=== PATIENT | male | born 1945 | race African-American/Black ===

== ENCOUNTER 2018-03-25 18:19 | Emergency (ER) | payer MEDICARE, MEDICAID, OTHER ==
[~2018-03-25] VITALS: Ht 182.9 cm; Wt 113.4 kg
[2018-03-25] MEDS ORDERED: Acetaminophen 500mg (ES) tab ORAL ONE (18:30)
[2018-03-25] MEDS ORDERED: Methocarbamol 500mg tab ORAL ONE (18:30)
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
[2018-03-25] MEDS ORDERED: TYLENOL EXTRA500 MG ORAL (19:23)
--- NOTE | 2018-03-26 11:03 | Diagnostic Imaging Report ---
Indication: Pain status post injury Technique: XRAY Foot Complete R Comparison: None Findings: No acute fractures identified. There is abnormality of the fourth digit with irregularity of the base of the fourth proximal phalanx. This may be related to chronic fracture or possibly congenital as a demonstrable fourth middle phalanx is not definitively seen. The fourth digit is foreshortened. Lisfranc alignment of the foot is preserved. No radiopaque foreign body identified. Impression: Chronic appearing abnormality of the fourth digit as above. No evidence of acute fracture or dislocation.
== END 2018-03-25 20:23 | disposition home or self-care (01) ==
LOC: EDBD 18:19 → EMR 19:50 → MERGE 19:50 → EMR 20:23
DX: S99.921A Unspecified injury of right foot, initial encounter (principal); W23.0XXA Caught, crushed, jammed, or pinched between moving objects, initial encounter; Y92.410 Unspecified street and highway as the place of occurrence of the external cause
CPT/HCPCS: 99283

== ENCOUNTER 2019-11-19 22:51 | Inpatient (IN) | payer MEDICARE, MEDICAID, OTHER ==
[~2019-11-19] VITALS: Ht 185.4 cm; Wt 129.3 kg
[~2019-11-19 22:51] MED LIST: TYLENOL EXTRA500 MG ORAL
[2019-11-19 23:02] VITALS: BP 133/72
[2019-11-19] MEDS ORDERED: NORCO 10-325 T1 EACH ORAL (23:15)
[2019-11-19] MEDS ORDERED: GABAPENTIN600 MG ORAL (23:15)
[2019-11-19] MEDS ORDERED: METFORMIN HCL500 M1 ORAL (23:15)
[2019-11-19] MEDS ORDERED: Neosporin Oint Ud Pkt TOP ONE (23:45)
[2019-11-19] MEDS ORDERED: Morphine Sulfate 4mg/ml Inj (IV USE ONLY) IVP ONE (23:45)
[2019-11-19] MEDS ORDERED: Tetanus/Diptheria/Pertussis IM ONE (23:45)
[2019-11-20] VITALS (7 sets, daily range): BP systolic 118–142; BP diastolic 62–83
[2019-11-20 00:01] LABS: BASOPHILS % (AUTO) 1.1 % (0.0-2.0); EOSINOPHILS % (AUTO) 3.4 % (0.0-3.0); HEMATOCRIT 48.3 % (42.0-52.0); HEMOGLOBIN 15.1 G/DL (14.2-18.0); LYMPHOCYTES % (AUTO) 26.5 % (20.0-45.0); MEAN CORPUSCULAR VOLUME 104 FL (80-99); MONOCYTES % (AUTO) 5.1 % (1.0-10.0); NEUTROPHILS % (AUTO) 63.9 % (45.0-75.0); PLATELET COUNT 187 K/UL (150-450); RED BLOOD COUNT 4.63 M/UL (4.70-6.10); RED CELL DISTRIBUTION WIDTH 13.4 % (11.6-14.8); WHITE BLOOD COUNT 9.8 K/UL (4.8-10.8)
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
[2019-11-20 00:07] LABS: INR 0.9 (0.9-1.1)
[2019-11-20] MEDS ORDERED: Vancomycin 1.5gm/NS Premix 275 ML IVPB ONE (00:15)
[2019-11-20] MEDS ORDERED: Piperacillin/Tazobactam 3.375 GM in NS 110 ML IVPB ONE (00:15)
[2019-11-20 00:29] LABS: ANION GAP 5 mmol/L (5-15); BLOOD UREA NITROGEN 22 mg/dL (7-18); CALCIUM 9.2 MG/DL (8.5-10.1); CARBON DIOXIDE 30 MMOL/L (21-32); CHLORIDE 101 MMOL/L (98-107); CREATININE 1.3 MG/DL (0.55-1.30); POTASSIUM 4.3 MMOL/L (3.5-5.1); SODIUM 136 MMOL/L (136-145)
[2019-11-20 00:35] LABS: ALANINE AMINOTRANSFERASE 22 U/L (12-78); ALBUMIN 3.3 G/DL (3.4-5.0); ALBUMIN/GLOBULIN RATIO 0.7 (1.0-2.7); ALKALINE PHOSPHATASE 24 U/L (46-116); ASPARTATE AMINO TRANSFERASE 19 U/L (15-37); BILIRUBIN,TOTAL 0.3 MG/DL (0.2-1.0)
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
--- NOTE | 2019-11-20 01:01 | Diagnostic Imaging Report ---
EXAM: XR Left Tibia and Fibula, 2 Views CLINICAL HISTORY: 2 day hx of left lower limb pain, had draining abscess. Was ann bearing, but now unable to walk due to pain. HX: diabetes and neuropathy TECHNIQUE: Frontal and lateral views of the left tibia and fibula. COMPARISON: No relevant prior studies available. FINDINGS: Bones/joints: Unremarkable. No acute fracture. No dislocation. Soft tissues: Unremarkable. No radiopaque foreign body. IMPRESSION: Normal left tibia and fibula x-rays.
[2019-11-20 01:36] LABS: APPEARANCE,URINE CLEAR; COLOR,URINE YELLOW
[2019-11-20 01:37] LABS: BILIRUBIN, URINE NEGATIVE (NEGATIVE); GLUCOSE, URINE (UA) NEGATIVE (NEGATIVE); KETONES,URINE NEGATIVE (NEGATIVE); LEUKOCYTE ESTERASE ,URINE 2+ (NEGATIVE); NITRITE,URINE NEGATIVE (NEGATIVE); PH,URINE 5 (4.5-8.0); PROTEIN,URINE 2+ (NEGATIVE); UROBILINOGEN,URINE NORMAL MG/DL (0.0-1.0)
[2019-11-20] MEDS ORDERED: Morphine Sulfate 4mg/ml Inj (IV USE ONLY) IVP ONE (02:30)
--- NOTE | 2019-11-20 03:12 | Diagnostic Imaging Report ---
EXAM: US Duplex Left Lower Extremity Veins CLINICAL HISTORY: Left leg pain TECHNIQUE: Real-time duplex ultrasound scan of the left lower extremity veins integrating B-mode two-dimensional vascular structure, Doppler spectral analysis, color flow Doppler imaging and compression. COMPARISON: No relevant prior studies available. FINDINGS: Deep veins: Unremarkable. No DVT in the visualized common femoral, femoral, proximal deep femoral or popliteal veins. The veins demonstrate normal color flow, are normally compressible, with normal phasic flow and/or augmentation response. Superficial veins: Unremarkable. No thrombus in the visualized great saphenous vein. Soft tissues: No acute findings. No popliteal cyst. IMPRESSION: Normal left lower extremity duplex venous ultrasound.
[2019-11-20] MEDS: NovoLOG Insulin Flexpen SUBQ SCH ×4 (06:03→21:00)
[2019-11-20] MEDS ORDERED: metFORMIN 500mg tab ORAL SCH (06:30)
[2019-11-20] MEDS: Aspirin Baby 81mg ORAL SCH (08:50)
[2019-11-20] MEDS: metFORMIN 500mg tab ORAL SCH (08:50)
[2019-11-20] MEDS: HYDROcodone/Acetamin 10/325 tab ORAL PRN (10:07)
[2019-11-20] MEDS: Vancomycin 1gm/D5W 275ml IVPB SCH ×2 (12:51)
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
--- NOTE | 2019-11-20 14:45 | Consultation ---
History of Present Illness General Date patient seen: Nov 20, 2019 Chief Complaint: Pain Referring physician: Oli Ng MD Reason for Consultation: Left leg cellulitis Present Illness HPI Pt relates long standing blisters to left leg, but describes recent popping of blister 2 days ago. Pt describes improvement with current iv antibiotic tx and hospitalization. Pt denies f/c/n/v. Pt describes pain with direct pressure. Pt denies hx of prior blisters or wounds. Allergies: Coded Allergies: No Known Allergies (Unverified , 03/26/18) Medication History Scheduled Gabapentin* (Gabapentin*), 600 MG ORAL THREE TIMES A DAY, (Reported) Metformin Hcl* (Metformin Hcl*), 500 MG ORAL TWICE A DAY, (Reported) Scheduled PRN Acetaminophen* (Tylenol Extra Strength*), 500 MG ORAL Q8H PRN for Prn Headache/ Temp > 101 Hydrocodone Bit/Acetaminophen 10-325* ([place]enedict 10-325*), 1 TAB ORAL Q6H PRN for For Pain, (Reported) Patient History History Provided By: Patient Healthcare decision maker Resuscitation status Advanced Directive on File Physical Exam General Appearance: lethargic, overweight Last 24 Hour Vital Signs Date Time Temp Pulse Resp B/P (MAP) Pulse Ox O2 Delivery O2 Flow Rate FiO2 11/20/19 12:00 98.7 104 18 123/79 (94) 93 11/20/19 09:00 Nasal Cannula 1.0 11/20/19 08:00 99.1 103 20 118/62 (80) 97 11/20/19 05:59 Room Air 11/20/19 04:00 97.9 62 20 138/74 (95) 95 11/20/19 04:00 98.4 72 21 135/72 93 Room Air 11/20/19 03:45 98.4 79 21 142/70 93 Room Air 11/20/19 03:18 98.4 11/20/19 00:45 98.4 79 21 140/73 90 Room Air 11/20/19 00:25 98.4 11/19/19 23:02 98.4 75 21 133/72 90 Room Air 11/19/19 22:57 98.4 78 21 133/72 (92) 90 Room Air Intake and Output 11/19/19 11/20/19 19:00 07:00 Intake Total 500 ml Balance 500 ml Intake Oral 500 ml # Voids 2 Laboratory Tests Test 11/19/19 23:20 11/20/19 01:22 White Blood Count 9.8 K/UL (4.8-10.8) Red Blood Count 4.63 M/UL (4.70-6.10) L Hemoglobin 15.1 G/DL (14.2-18.0) Hematocrit 48.3 % (42.0-52.0) Mean Corpuscular Volume 104 FL (80-99) H Mean Corpuscular Hemoglobin 32.5 PG (27.0-31.0) H Mean Corpuscular Hemoglobin Concent 31.2 G/DL (32.0-36.0) L Red Cell Distribution Width 13.4 % (11.6-14.8) Platelet Count 187 K/UL (150-450) Mean Platelet Volume 6.5 FL (6.5-10.1) Neutrophils (%) (Auto) 63.9 % (45.0-75.0) Lymphocytes (%) (Auto) 26.5 % (20.0-45.0) Monocytes (%) (Auto) 5.1 % (1.0-10.0) Eosinophils (%) (Auto) 3.4 % (0.0-3.0) H Basophils (%) (Auto) 1.1 % (0.0-2.0) Erythrocyte Sedimentation Rate 32 MM/HR (0-20) H Prothrombin Time 10.2 SEC (9.30-11.50) Prothromb Time International Ratio 0.9 (0.9-1.1) Activated Partial Thromboplast Time 27 SEC (23-33) Sodium Level 136 MMOL/L (136-145) Potassium Level 4.3 MMOL/L (3.5-5.1) Chloride Level 101 MMOL/L (98-107) Carbon Dioxide Level 30 MMOL/L (21-32) Anion Gap 5 mmol/L (5-15) Blood Urea Nitrogen 22 mg/dL (7-18) H Creatinine 1.3 MG/DL (0.55-1.30) Estimat Glomerular Filtration Rate > 60 mL/min (>60) Glucose Level 101 MG/DL (74-106) Lactic Acid Level 1.20 mmol/L (0.4-2.0) Calcium Level 9.2 MG/DL (8.5-10.1) Magnesium Level 1.9 MG/DL (1.8-2.4) Total Bilirubin 0.3 MG/DL (0.2-1.0) Aspartate Amino Transf (AST/SGOT) 19 U/L (15-37) Alanine Aminotransferase (ALT/SGPT) 22 U/L (12-78) Alkaline Phosphatase 24 U/L (46-116) L C-Reactive Protein, Quantitative 0.9 mg/dL (0.00-0.90) Pro-B-Type Natriuretic Peptide 53 pg/mL (0-125) Total Protein 7.8 G/DL (6.4-8.2) Albumin 3.3 G/DL (3.4-5.0) L Globulin 4.5 g/dL Albumin/Globulin Ratio 0.7 (1.0-2.7) L Urine Color Yellow Urine Appearance Clear Urine pH 5 (4.5-8.0) Urine Specific [place] 1.010 (1.005-1.035) Urine Protein 2+ (NEGATIVE) H Urine Glucose (UA) Negative (NEGATIVE) Urine Ketones Negative (NEGATIVE) Urine Blood 2+ (NEGATIVE) H Urine Nitrite Negative (NEGATIVE) Urine Bilirubin Negative (NEGATIVE) Urine Urobilinogen Normal MG/DL (0.0-1.0) Urine Leukocyte Esterase 2+ (NEGATIVE) H Urine RBC 2-4 /HPF (0 - 0) H Urine WBC 20-30 /HPF (0 - 0) H Urine Squamous Epithelial Cells Occasional /LPF Urine Bacteria Occasional /HPF (NONE) Microbiology Date/Time Source Procedure Growth Status 11/19/19 23:20 Nasopharynx SARS-CoV-2 RdRp Gene Assay - Final Complete 11/19/19 23:20 Leg Left Gram Stain - Final Resulted 11/19/19 23:20 Leg Left Wound Culture Pending Resulted Height (Feet): 6 Height (Inches): 1.00 Weight (Pounds): 285 Medications Current Medications Medications (Trade) Dose Ordered Sig/Siomara Route PRN Reason Start Time Stop Time Status Last Admin Dose Admin Acetaminophen/ Hydrocodone Bitart ([place] 10/325) 1 tab Q6H PRN ORAL For Pain 11/20/19 07:15 11/27/19 07:14 11/20/19 10:07 Aspirin (ASA) 81 mg DAILY ORAL 11/20/19 09:00 01/04/20 08:59 11/20/19 08:50 Dextrose (Dextrose 50%) 25 ml Q30M PRN IV Hypoglycemia 11/20/19 05:00 02/18/20 04:59 Dextrose (Dextrose 50%) 50 ml Q30M PRN IV Hypoglycemia 11/20/19 05:00 02/18/20 04:59 Folic Acid (Folate) 1 mg DAILY ORAL 11/20/19 09:00 12/20/19 08:59 11/20/19 08:50 Gabapentin (Neurontin) 600 mg THREE TIMES A DAY ORAL 11/20/19 09:00 12/20/19 08:59 11/20/19 12:51 Insulin Aspart (NovoLOG) BEFORE MEALS AND HS SUBQ 11/20/19 06:30 02/18/20 06:29 11/20/19 12:09 Insulin Detemir (Levemir) 15 units BEDTIME SUBQ 11/20/19 21:00 02/18/20 20:59 Levofloxacin 100 ml @ 100 mls/hr Q24H IVPB 11/20/19 14:00 11/27/19 13:59 11/20/19 14:28 Metformin HCl (Glucophage) 500 mg DAILY ORAL 11/20/19 09:00 12/20/19 08:59 11/20/19 08:50 Potassium Chloride (K-Dur) 10 meq DAILY ORAL 11/20/19 09:00 02/18/20 08:59 11/20/19 08:51 Vancomycin HCl (Vanco pharmacy to dose) 1 ea DAILY PRN MISC Per rx protocol 11/20/19 05:00 12/20/19 04:59 Vancomycin HCl 1 gm/Dextrose 275 ml @ 183.708 mls/hr Q12HR@0100,1300 IVPB 11/20/19 13:00 11/25/19 12:59 11/20/19 12:51 Objective Narrative Vascular: DP, PT 1/4, CFT > 5 secs, b/l feet warm to touch Neuro: Light touch sensation intact, b/l MSK: Severely limited rom b/l ft and ankles, but without pain including left ankle joint. Muscle strength 4-5/5 in all 4 quadrants b/l. Tenderness to palpation anterior lateral and posterior lateral left leg. 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 Derm: Superficial ulceration s/p deroofed blister at the anterior lateral left leg, measuring approximately 2.5 x 2.5 cm, and posterior lateral left leg, measuring approximately 2 x 2 cm, with edema, but no erythema, warmth, odor, fluctuance, streaking, or pus discharge noted. Absent left hallux toenail. Non elongated, dystrophic toenails x 9. Dry plantar skin, b/l feet. No other pre-ulcerative lesions or interspace macerations noted, b/l feet. X-rays reviewed. Assessment/Plan Problem List: (1) Cellulitis ICD Codes: L03.90 - Cellulitis, unspecified SNOMED: 840861374 Qualifiers: Qualified Codes: L03.116 - Cellulitis of left lower limb (2) BMI 37.0-37.9, adult ICD Codes: Z68.37 - Body mass index (BMI) 37.0-37.9, adult SNOMED: 435609428 (3) UTI (urinary tract infection) ICD Codes: N39.0 - Urinary tract infection, site not specified SNOMED: 66086576 Assessment/Plan: Review diabetic foot care guidelines. Pt consented to and tolerated well cleansing of wound sites with saline and betadine, and dressed with xeroform, 4x4 gauze, kerlix, and tape. Cont abx per ID. Recommend daily dressing changes and close monitoring. Jazmín Gupta DPM Nov 20, 2019 14:45
[2019-11-20] MEDS: Levemir Flexpen SUBQ SCH (21:12)
[2019-11-21] VITALS: BP 129/79
[2019-11-21] MEDS: Vancomycin 1gm/D5W 275ml IVPB SCH ×4 (00:43→12:22)
[2019-11-21 04:00] VITALS: BP 126/75
[2019-11-21] MEDS: NovoLOG Insulin Flexpen SUBQ SCH ×4 (06:30→21:00)
[2019-11-21] MEDS: HYDROcodone/Acetamin 10/325 tab ORAL PRN (07:50)
[2019-11-21 08:00] VITALS: BP 114/68
[2019-11-21] MEDS: Aspirin Baby 81mg ORAL SCH (08:32)
[2019-11-21] MEDS: metFORMIN 500mg tab ORAL SCH (08:33)
--- NOTE | 2019-11-21 10:46 | Pulmonology Progress Note ---
Subjective Interval Events: None new Constitutional: Reports: no symptoms HEENT: Repors: no symptoms Respiratory: Reports: no symptoms Cardiovascular: Reports: no symptoms Allergies: Coded Allergies: No Known Allergies (Unverified , 03/26/18) Objective Last 24 Hour Vital Signs Date Time Temp Pulse Resp B/P (MAP) Pulse Ox O2 Delivery O2 Flow Rate FiO2 11/21/19 09:00 Nasal Cannula 2.0 11/21/19 08:00 98.7 105 22 114/68 (83) 97 11/21/19 04:00 98.5 97 17 126/75 (92) 95 11/21/19 00:00 99.2 101 19 129/79 (96) 94 11/20/19 21:00 Nasal Cannula 2.0 11/20/19 20:00 97.2 93 18 135/71 (92) 96 11/20/19 16:00 98.0 100 18 126/83 (97) 96 11/20/19 14:37 Nasal Cannula 2.0 11/20/19 12:00 98.7 104 18 123/79 (94) 93 Intake and Output 11/20/19 11/21/19 19:00 07:00 Intake Total 1367.416 ml 800 ml Output Total 1100 ml Balance 1367.416 ml -300 ml Intake Oral 800 ml IV Total 467.416 ml Other 900 ml Output Urine Total 1100 ml # Voids 3 General Appearance: no acute distress HEENT: normocephalic Respiratory: chest wall non-tender, lungs clear Cardiovascular: normal peripheral pulses Abdomen: normal bowel sounds Microbiology Date/Time Source Procedure Growth Status 11/19/19 23:20 Nasopharynx SARS-CoV-2 RdRp Gene Assay - Final Complete 11/20/19 01:22 Urine,Clean Catch Urine Culture - Preliminary NO GROWTH AFTER 24 HOURS Resulted 11/19/19 23:20 Leg Left Gram Stain - Final Resulted 11/19/19 23:20 Wound Culture - Preliminary Staphylococcus Species Resulted Current Medications Medications (Trade) Dose Ordered Sig/Siomara Route PRN Reason Start Time Stop Time Status Last Admin Dose Admin Acetaminophen/ Hydrocodone Bitart ([place] 10/325) 1 tab Q6H PRN ORAL For Pain 11/20/19 07:15 11/27/19 07:14 11/21/19 07:50 Aspirin (ASA) 81 mg DAILY ORAL 11/20/19 09:00 01/04/20 08:59 11/21/19 08:32 Dextrose (Dextrose 50%) 25 ml Q30M PRN IV Hypoglycemia 11/20/19 05:00 02/18/20 04:59 Dextrose (Dextrose 50%) 50 ml Q30M PRN IV Hypoglycemia 11/20/19 05:00 02/18/20 04:59 Folic Acid (Folate) 1 mg DAILY ORAL 11/20/19 09:00 12/20/19 08:59 11/21/19 08:33 Gabapentin (Neurontin) 600 mg THREE TIMES A DAY ORAL 11/20/19 09:00 12/20/19 08:59 11/21/19 08:32 Insulin Aspart (NovoLOG) BEFORE MEALS AND HS SUBQ 11/20/19 06:30 02/18/20 06:29 11/20/19 16:50 Insulin Detemir (Levemir) 15 units BEDTIME SUBQ 11/20/19 21:00 02/18/20 20:59 11/20/19 21:12 Levofloxacin 100 ml @ 100 mls/hr Q24H IVPB 11/20/19 14:00 11/27/19 13:59 11/20/19 14:28 Metformin HCl (Glucophage) 500 mg DAILY ORAL 11/20/19 09:00 12/20/19 08:59 11/21/19 08:33 Potassium Chloride (K-Dur) 10 meq DAILY ORAL 11/20/19 09:00 02/18/20 08:59 11/21/19 08:33 Vancomycin HCl (Vanco pharmacy to dose) 1 ea DAILY PRN MISC Per rx protocol 11/20/19 05:00 12/20/19 04:59 Vancomycin HCl 1 gm/Dextrose 275 ml @ 183.708 mls/hr Q12HR@0100,1300 IVPB 11/20/19 13:00 11/25/19 12:59 11/21/19 00:43 Assessment/Plan Assessment/Plan IMPRESSION: 1. Bilateral lower extremity cellulitis. 2. Diabetes mellitus. 3. Peripheral neuropathy. 4. Hypertension. 5. Chronic obstructive pulmonary disease. DISCUSSION: Continue broad spectrum antibiotics. Continue home medications. Consider ID evaluation. I will follow carefully. Continue diuresis. Await ECHO Batool Milner Omar Syed MD Nov 21, 2019 10:46
[2019-11-21] MEDS: Furosemide 40mg tab ORAL SCH (11:36)
[2019-11-21 12:00] VITALS: BP 127/73
[2019-11-21 16:00] VITALS: BP 155/83
[2019-11-21 20:00] VITALS: BP 126/75
[2019-11-21] MEDS: Levemir Flexpen SUBQ SCH (21:00)
[2019-11-22] VITALS: BP 137/71
[2019-11-22] MEDS: Vancomycin 1gm/D5W 275ml IVPB SCH ×2 (01:12)
[2019-11-22 04:00] VITALS: BP 142/81
[2019-11-22] MEDS: NovoLOG Insulin Flexpen SUBQ SCH ×2 (06:30→11:30)
[2019-11-22 08:00] VITALS: BP 138/84
[2019-11-22] MEDS: HYDROcodone/Acetamin 10/325 tab ORAL PRN (08:30)
[2019-11-22] MEDS: Aspirin Baby 81mg ORAL SCH (08:30)
[2019-11-22] MEDS: metFORMIN 500mg tab ORAL SCH (08:30)
[2019-11-22] MEDS: Furosemide 40mg tab ORAL SCH (08:30)
[2019-11-22] MEDS ORDERED: NORCO 10-325 T1 EACH ORAL (10:33)
[2019-11-22] MEDS ORDERED: ASPIRIN81 MG ORAL (10:33)
[2019-11-22] MEDS ORDERED: FOLIC ACID1 MG ORAL (10:33)
[2019-11-22] MEDS ORDERED: GABAPENTIN600 MG ORAL (10:33)
[2019-11-22] MEDS ORDERED: LEVAQUIN500 MG ORAL (10:33)
[2019-11-22] MEDS ORDERED: K-TAB10 MEQ ORAL (10:33)
[2019-11-22] MEDS ORDERED: FUROSEMIDE40 MG ORAL (10:33)
[2019-11-22] MEDS ORDERED: METFORMIN HCL500 M1 ORAL (10:33)
[2019-11-22] MEDS ORDERED: LEVEMIR FL100 UNIT/1 SUBQ (10:33)
--- NOTE | 2019-11-22 11:02 | Pulmonology Progress Note ---
Subjective Interval Events: None new Constitutional: Reports: no symptoms HEENT: Repors: no symptoms Respiratory: Reports: no symptoms Cardiovascular: Reports: no symptoms Allergies: Coded Allergies: No Known Allergies (Unverified , 03/26/18) Objective Last 24 Hour Vital Signs Date Time Temp Pulse Resp B/P (MAP) Pulse Ox O2 Delivery O2 Flow Rate FiO2 11/22/19 09:19 98.4 11/22/19 08:00 98.4 99 20 138/84 (102) 93 11/22/19 04:00 98.6 99 19 142/81 (101) 93 11/22/19 00:00 97.7 99 19 137/71 (93) 96 11/21/19 21:00 Nasal Cannula 2.0 11/21/19 20:00 98.0 90 18 126/75 (92) 95 11/21/19 16:00 98.1 102 21 155/83 (107) 95 11/21/19 12:00 98.6 96 22 127/73 (91) 95 Intake and Output 11/21/19 11/22/19 19:00 07:00 Intake Total 1667.416 ml 767.4 ml Output Total 1200 ml 700 ml Balance 467.416 ml 67.4 ml Intake Oral 1200 ml 400 ml IV Total 467.416 ml 367.4 ml Output Urine Total 1200 ml 700 ml General Appearance: no acute distress HEENT: normocephalic Respiratory: chest wall non-tender, lungs clear Cardiovascular: normal peripheral pulses Abdomen: normal bowel sounds Microbiology Date/Time Source Procedure Growth Status 11/19/19 23:20 Nasopharynx SARS-CoV-2 RdRp Gene Assay - Final Complete 11/20/19 01:22 Urine,Clean Catch Urine Culture - Final NO GROWTH AFTER 48 HOURS Complete 11/19/19 23:20 Leg Left Gram Stain - Final Resulted 11/19/19 23:20 Wound Culture - Preliminary Staphylococcus Species Resulted Laboratory Tests 11/21/19 11:12: POC Whole Blood Glucose 186H 11/21/19 11:45: Vancomycin Level Trough 12.9H 11/21/19 20:32: POC Whole Blood Glucose 146H Current Medications Medications (Trade) Dose Ordered Sig/Siomara Route PRN Reason Start Time Stop Time Status Last Admin Dose Admin Acetaminophen/ Hydrocodone Bitart ([place] 10/325) 1 tab Q6H PRN ORAL For Pain 11/20/19 07:15 11/27/19 07:14 11/22/19 08:30 Aspirin (ASA) 81 mg DAILY ORAL 11/20/19 09:00 01/04/20 08:59 11/22/19 08:30 Dextrose (Dextrose 50%) 25 ml Q30M PRN IV Hypoglycemia 11/20/19 05:00 02/18/20 04:59 Dextrose (Dextrose 50%) 50 ml Q30M PRN IV Hypoglycemia 11/20/19 05:00 02/18/20 04:59 Folic Acid (Folate) 1 mg DAILY ORAL 11/20/19 09:00 12/20/19 08:59 11/22/19 08:30 Furosemide (Lasix) 40 mg DAILY ORAL 11/21/19 11:00 12/21/19 10:59 11/22/19 08:30 Gabapentin (Neurontin) 600 mg THREE TIMES A DAY ORAL 11/20/19 09:00 12/20/19 08:59 11/22/19 08:30 Insulin Aspart (NovoLOG) BEFORE MEALS AND HS SUBQ 11/20/19 06:30 02/18/20 06:29 11/21/19 17:13 Insulin Detemir (Levemir) 15 units BEDTIME SUBQ 11/20/19 21:00 02/18/20 20:59 11/20/19 21:12 Levofloxacin 100 ml @ 100 mls/hr Q24H IVPB 11/20/19 14:00 11/27/19 13:59 11/21/19 15:22 Metformin HCl (Glucophage) 500 mg DAILY ORAL 11/20/19 09:00 12/20/19 08:59 11/22/19 08:30 Potassium Chloride (K-Dur) 10 meq DAILY ORAL 11/20/19 09:00 02/18/20 08:59 11/22/19 08:30 Vancomycin HCl (Vanco pharmacy to dose) 1 ea DAILY PRN MISC Per rx protocol 11/20/19 05:00 12/20/19 04:59 Vancomycin HCl 1 gm/Dextrose 275 ml @ 183.708 mls/hr Q12HR@0100,1300 IVPB 11/20/19 13:00 11/25/19 12:59 11/22/19 01:12 Assessment/Plan Assessment/Plan IMPRESSION: 1. Bilateral lower extremity cellulitis. 2. Diabetes mellitus. 3. Peripheral neuropathy. 4. Hypertension. 5. Chronic obstructive pulmonary disease. DISCUSSION: Pa home PO abx Batool Milner Omar Syed MD Nov 22, 2019 11:02
[2019-11-22 12:00] VITALS: BP 133/83
--- NOTE | 2019-11-23 12:38 | Discharge Summary ---
Discharge Summary Discharge Summary _ DATE OF ADMISSION: 11/20/2019 DATE OF DISCHARGE: 11/22/2019 DISCHARGED BY: Dr. Ng REASON FOR ADMISSION: 74 years old male with past medical history of hypertension, diabetes mellitus, presented to the hospital with bilateral lower extremities swelling. Patient also had a long standing history of blister on the left lower leg that burst 2 days ago . Patient reported redness and pain No fever or chills. No chest pain or shortness of breath. Rapid COVID-19 in the emergency department was negative. Vital signs were stable. No leukocytosis , stable hemoglobin, hematocrit. Stable renal parameters. Lactic acid 1.2. Urinalysis revealed pyuria and occasional bacteria. Chest x-ray revealed right-sided atelectasis. EKG revealed sinus rhythm , no acute ischemic changes. Patient received Tdap , started on empiric antibiotic , received analgesic and admitted for further management. CONSULTANTS: security project manager Dr. Minor [place] [employer]RSE: Patient admitted to medical surgical floor and started on empiric antibiotics . Home medication continued. Urine culture came back negative. Wound culture revealed Staph epidermidis and diphtheroids , likely contaminant. Blood sugar was managed with long-acting Levemir and sliding scale of short acting insulin as needed. Diabetic diet provided. Antiplatelet therapy with aspirin continued. Lasix and potassium continued. Volumes were closely monitored. Echocardiogram revealed preserved ejection fraction to the extent visualized. No evidence of wall motion abnormality. Right ventricular systolic pressure of 58 consistent with moderate pulmonary hypertension. Venous duplex bilateral lower extremity revealed no evidence of acute DVT. X ray of the left leg tibia-fibula was unremarkable Supplemental oxygen was on board as needed to keep pulse oximetry above 92%. Oxygen via nasal cannula provided as needed. Burr Bench Hand reviewed diabetic foot care guidelines with patient. Wound care provided by security project manager , who recommended daily dressing changes with close monitoring. Patient clinically stabilized and was ready for discharge home on oral antibiotic to complete the course. FINAL DIAGNOSES: Bilateral lower extremity cellulitis Diabetes mellitus Peripheral neuropathy Hypertension COPD Obesity with a BMI 37.0-37.9 DISCHARGE MEDICATIONS: See Medication Reconciliation list. DISCHARGE INSTRUCTIONS: Patient was discharged home. Follow-up with a primary care provider in 1 to 2 weeks. I have been assigned to dictate discharge summary for this account. I was not involved in the patient's management. Mahsa Crenshaw NP Nov 23, 2019 12:38
== END 2019-11-22 12:40 | disposition home or self-care (01) | DRG 603 ==
LOC: EMR 23:45 → 4E 11-20 03:24 → EDBEDREQ 11-20 03:38 → 4E 11-20 04:52
DX: L03.116 Cellulitis of left lower limb (principal); L97.821 Non-pressure chronic ulcer of other part of left lower leg limited to breakdown of skin; L03.115 Cellulitis of right lower limb; E11.42 Type 2 diabetes mellitus with diabetic polyneuropathy; J44.9 Chronic obstructive pulmonary disease, unspecified; I10 Essential (primary) hypertension; E66.9 Obesity, unspecified; Z68.37 Body mass index [BMI] 37.0-37.9, adult; Z79.84 Long term (current) use of oral hypoglycemic drugs; Z23 Encounter for immunization
CPT/HCPCS: 36415; 71045; 80053; 80202; 81001; 82962; 83605; 83735; 83880; 85025; 85610; 85651; 85730; 86140; 87070; 87086; 87181; 87205; 90471; 90715; 93005; 93306; 93971; 96374; 96375; 99285; J1815; J2405; S5561; U0002

== ENCOUNTER 2020-01-22 20:49 | Emergency (ER) | payer MEDICARE, MEDICAID, OTHER ==
[~2020-01-22] VITALS: Ht 177.8 cm; Wt 124.7 kg
[~2020-01-22 20:49] MED LIST changes: +ASPIRIN81 MG ORAL; +FOLIC ACID1 MG ORAL; +FUROSEMIDE40 MG ORAL; +GABAPENTIN600 MG ORAL; +K-TAB10 MEQ ORAL; +LEVAQUIN500 MG ORAL; +LEVEMIR FL100 UNIT/1 SUBQ; +METFORMIN HCL500 M1 ORAL; +NORCO 10-325 T1 EACH ORAL
--- NOTE | 2020-01-22 20:58 | NUR ---
ED Nurse Note: pt JIMNicanor GOKUL from home s/p GLF today. pt states that he slipped on one of his kid's toys and fell over. pt denies any head injury or LOC. pt is noted to have bandages to his LLE, states that he has a wound there and that a home health nurse comes to change the dressings for him. pt is reporting pain in his L ankle and entire L leg
[2020-01-22] MEDS ORDERED: DiphenhydrAMINE 50mg/ml Inj IVP ONE (21:00)
[2020-01-22] MEDS ORDERED: Bacitracin Oint UD TOPIC ONE ×2 (21:00→23:00)
[2020-01-22] MEDS ORDERED: Morphine Sulfate 4mg/ml Inj (IV USE ONLY) IVP ONE (21:00)
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
--- NOTE | 2020-01-22 21:37 | NUR ---
ED Nurse Note: xray at pt bedsidse
[2020-01-22 21:54] LABS: BASOPHILS % (AUTO) 0.9 % (0.0-2.0); EOSINOPHILS % (AUTO) 3.4 % (0.0-3.0); HEMATOCRIT 48.8 % (42.0-52.0); HEMOGLOBIN 15.2 G/DL (14.2-18.0); LYMPHOCYTES % (AUTO) 21.4 % (20.0-45.0); MEAN CORPUSCULAR VOLUME 103 FL (80-99); MONOCYTES % (AUTO) 4.9 % (1.0-10.0); NEUTROPHILS % (AUTO) 69.5 % (45.0-75.0); PLATELET COUNT 215 K/UL (150-450); RED BLOOD COUNT 4.72 M/UL (4.70-6.10); WHITE BLOOD COUNT 11.7 K/UL (4.8-10.8)
[2020-01-22 22:11] LABS: ANION GAP 3 mmol/L (5-15); BLOOD UREA NITROGEN 14 mg/dL (7-18); CALCIUM 8.8 MG/DL (8.5-10.1); CARBON DIOXIDE 36 MMOL/L (21-32); CHLORIDE 100 MMOL/L (98-107); CREATININE 1.3 MG/DL (0.55-1.30); POTASSIUM 4.1 MMOL/L (3.5-5.1); SODIUM 139 MMOL/L (136-145)
[2020-01-22 22:16] LABS: ALANINE AMINOTRANSFERASE 11 U/L (12-78); ALBUMIN/GLOBULIN RATIO 0.8 (1.0-2.7); ALKALINE PHOSPHATASE 117 U/L (46-116); ASPARTATE AMINO TRANSFERASE 16 U/L (15-37); BILIRUBIN,TOTAL 0.2 MG/DL (0.2-1.0)
[2020-01-22 22:24] LABS: APPEARANCE,URINE CLEAR; BILIRUBIN, URINE NEGATIVE (NEGATIVE); COLOR,URINE AMBER; GLUCOSE, URINE (UA) NEGATIVE (NEGATIVE); KETONES,URINE NEGATIVE (NEGATIVE); LEUKOCYTE ESTERASE ,URINE 2+ (NEGATIVE); NITRITE,URINE NEGATIVE (NEGATIVE); PH,URINE 7 (4.5-8.0); PROTEIN,URINE 3+ (NEGATIVE); UROBILINOGEN,URINE 1 MG/DL (0.0-1.0)
[2020-01-22 22:37] LABS: INR 0.9 (0.9-1.1)
[2020-01-22] MEDS ORDERED: NORCO 5-325 TA1 EAC1 ORAL (22:58)
[2020-01-22] MEDS ORDERED: BACITRACIN15 GM TOPIC (22:58)
[2020-01-22] MEDS ORDERED: Bactrim-DS 1 tab ORAL ONE (23:00)
[2020-01-22] MEDS ORDERED: BACTRIM DS TAB1 EAC1 ORAL (23:01)
[2020-01-22 23:08] VITALS: BP 147/87
--- NOTE | 2020-01-22 23:08 | NUR ---
ER DISCHARGE NOTE: Patient is cleared to be discharged per ERMD, pt is aox4, on room air, with stable vital signs. pt was given dc and prescription instructions, pt was able to verbalize understanding, pt id band and iv site removed without complications. pt is able to ambulate with steady gait. pt took all belongings.
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
--- NOTE | 2020-01-22 23:25 | NUR ---
ED Nurse Note: Pt has been discharged to home by nurse and waiting for transportation to home, pt attempted to get up and could not due to pain, states pain is very bad and he needs a walker and more pain meds, rates pain at 12/08, MD informed, pt to be medicated and released after no s/s of reaction and safe with family.
[2020-01-22] MEDS ORDERED: Morphine Sulfate 2mg/ml Inj(IV/IM USE ONLY) IM ONE (23:45)
[2020-01-22] MEDS ORDERED: Morphine Sulfate 10mg/ml Inj ONE (23:55)
== END 2020-01-22 23:09 | disposition home or self-care (01) ==
LOC: EDBD 20:49 → EMR 21:15
DX: S93.412A Sprain of calcaneofibular ligament of left ankle, initial encounter (principal); I83.022 Varicose veins of left lower extremity with ulcer of calf; N30.00 Acute cystitis without hematuria; X50.1XXA Overexertion from prolonged static or awkward postures, initial encounter; Y92.9 Unspecified place or not applicable; E11.42 Type 2 diabetes mellitus with diabetic polyneuropathy; I10 Essential (primary) hypertension; J44.9 Chronic obstructive pulmonary disease, unspecified; E66.9 Obesity, unspecified; L97.221 Non-pressure chronic ulcer of left calf limited to breakdown of skin; Z68.39 Body mass index [BMI] 39.0-39.9, adult
CPT/HCPCS: 36415; 71045; 73610; 80053; 81001; 85025; 85610; 85651; 85730; 86140; 87086; 96372; 96374; 96375; 99284; J1200; J2270; J2405